=== PATIENT | male | born 1975 | race Hispanic/Latino ===

== ENCOUNTER 2021-12-20 18:35 | Emergency (ER) | payer MEDICARE ==
[~2021-12-20] VITALS: Ht 172.7 cm; Wt 79.4 kg
[2021-12-20 18:41] VITALS: BP 147/76
[2021-12-20] MEDS ORDERED: NAPR500T6 PO (22:19)
[2021-12-20] MEDS ORDERED: CYCL10TA16 PO (22:19)
[2021-12-20] MEDS ORDERED: KETOROLAC 30MG VIAL (30MG/ML) IM ONE (22:30)
[2021-12-20] MEDS ORDERED: ORPHENADRINE CITRATE 30 MG/ML ML IM ONE (22:30)
== END 2021-12-20 23:04 | disposition home or self-care (01) ==
LOC: EDH 18:35
DX: S39.012A Strain of muscle, fascia and tendon of lower back, initial encounter (principal); X58.XXXA Exposure to other specified factors, initial encounter; Y93.89 Activity, other specified; Y92.89 Other specified places as the place of occurrence of the external cause; Y99.8 Other external cause status
CPT/HCPCS: 99284; 96372 ×2; J1885; J2360